=== PATIENT | female | born 1990 | race Caucasian/White ===

== ENCOUNTER → 2016-09-10 | Outpatient (CLI) | payer MEDICAID ==
[~2016-09-10] MED LIST: MOTRIN-DPS800 MG PO; PROTONIX40 MG PO; TYLENOL EXTRA500 M1 PO
== END | disposition home or self-care (01) ==
LOC: RAD.S 08:00
DX: R10.9 Unspecified abdominal pain (principal); K80.20 Calculus of gallbladder without cholecystitis without obstruction; R11.10 Vomiting, unspecified

== ENCOUNTER 2016-11-11 22:07 | Outpatient (CLI) | payer MEDICAID ==
[2016-12-08] MEDS ORDERED: PROTONIX40 MG PO (09:10)
[2016-12-08] MEDS ORDERED: MOTRIN-DPS800 MG PO (09:10)
[2016-12-08] MEDS ORDERED: TYLENOL EXTRA500 M1 PO (09:10)
== END 2016-11-12 00:50 | disposition home or self-care (01) ==
LOC: 2LDRP 22:07 → BC 22:07
DX: O99.89 Other specified diseases and conditions complicating pregnancy, childbirth and the puerperium (principal); M54.9 Dorsalgia, unspecified; Z3A.36 36 weeks gestation of pregnancy